=== PATIENT | male | born 1930 | race Hispanic/Latino ===

== ENCOUNTER 2016-09-21 09:53 | Emergency (ER) | payer OTHER, MEDICARE ==
[2016-09-21] MEDS ORDERED: Sodium Chloride 0.9% 1,000 ML PRIMARY IV ONE (10:13)
[2016-09-21] MEDS ORDERED: NORMAL SALINE 10 ML SYRINGE FLUSH IVP PRN (10:13)
[2016-09-21 10:16] VITALS: RESP 20; TEMP 97.3
[2016-09-21 10:35] LABS: BASOPHILS # (AUTO) 0.01 10*3/UL; BASOPHILS % (AUTO) 0.2 % (0-1); EOSINOPHILS # (AUTO) 0.06 10*3/UL; EOSINOPHILS % (AUTO) 1.3 % (0-8); HEMATOCRIT 40.6 % (42.0-52.0); LYMPHOCYTES # (AUTO) 0.91 10*3/uL; MEAN CORPUSCULAR HGB CONC 34.5 g/dL (33-37); MEAN CORPUSCULAR VOLUME 86.9 FL (80-90); MEAN PLATELET VOLUME 8.3 FL (7.4-12.2); MONOCYTES # (AUTO) 0.29 10*3/UL (0.3-0.8); MONOCYTES % (AUTO) 6.4 % (5-15); NEUTROPHILS # (AUTO) 3.23 10*3/UL; NEUTROPHILS % (AUTO) 71.7 % (50-80); RED BLOOD COUNT 4.67 10^6/uL (4.70-6.10)
[2016-09-21 10:41] LABS: PLATELET MORPHOLOGY COMMENT NORMAL MORPHOLOGY (NORM); RBC MORPHOLOGY COMMENT NORMAL MORPHOLOGY (NORM); WBC MORPHOLOGY COMMENT NORMAL MORPHOLOGY (NORM)
[2016-09-21 10:47] LABS: BUN/CREATININE RATIO 25.71 (6-20); MAGNESIUM 1.8 mg/dL (1.6-2.4); SERUM ALBUMIN 3.8 g/dL (3.5-4.8)
--- NOTE | 2016-09-21 11:08 | DI ---
AP PELVIS and LEFT HIP, 09/21/2016 10:16 AM: Clinical History: Left hip pain. Previous Exam: None at this facility. There is no soft tissue abnormality. The bony structures of the pelvis are normal. 2 views of the lef t hip show no fracture. There is asphericity of the femoral head with acetabular over coverage along the superior and lateral margin of the acetabulum. 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 There is no significant joint space narrowing. The patient has had extensive low back surgery. Readin. There is no acute fracture noted. No significant joint space narrowing is present but there is as phericity of the femoral head with acetabular over coverage suggesting this patient may have femoroac etabular impingement. 2. The AP pelvis view is otherwise unremarkable.
--- NOTE | 2016-09-21 11:08 | DI ---
PA /LATERAL CHEST X-RAY, 09/21/2016 10:13 AM : Clinical History: Abnormal physical exam revealing decreased breath sounds in the left chest. Previous Exam: 01/02/2015. There is no acute soft tissue or bony abnormality. Surgical clips are present in the right side of th e neck. Heart size is normal. Lungs are clear. Mediastinal structures are normal. There are no pulmon garth nodules. Reading: Normal chest x-ray. There has been no change.
--- NOTE | 2016-09-21 12:31 | DI ---
CT ABDOMEN SCAN WITH IV CONTRAST, 09/21/2016 11:55 AM : Clinical History: Left flank pain and left abdominal pain. Previous Exam: None at this facility. Scans are performed from the lower lung bases through the liver and kidneys with IV contrast. 65 ml o f Isovue 300 was injected IV. No oral or rectal contrast was ordered. The lung bases are clear. The liver is normal. The gallbladder is grossly normal. There is no abnorma lity of the spleen, pancreas, and adrenal glands. Both kidneys are normal in size, shape, position an d contour. There is no hydronephrosis or hydroureter. No renal or ureteral calculi are present. There are no abnormal retrocrural or periaortic nodes. No ascites is present. READING: Normal CT abdomen scan. CT PELVIS SCAN WITH IV CONTRAST, 09/21/2016 11:55 AM: Clinical History: See above. Previous Exam: None at this facility. Scans are performed from just superior to the umbilicus to the symphysis pubis with IV contrast. This is the same bolus of contrast used for the CT scans of the abdomen. Scans through the lower abdomen and pelvis show no masses or abnormal fluid collections. There is no adenopathy. The appendix is not visualized but there is no inflammatory mass in the cecal tip or in t he right lower quadrant. The small bowel, terminal ileum, and ileocecal valve are normal. The colon i s also normal. There are no hernias. READING: Normal CT scan of the pelvis.
[2016-09-21 12:59] LABS: BILIRUBIN,URINE NEGATIVE (NEG); COLOR,URINE YELLOW; GLUCOSE, URINE (UA) NEGATIVE (NEG); NITRATE,URINE NEGATIVE (NEG); OCCULT BLOOD,URINE NEGATIVE (NEG); PH,URINE 5.5 (5.0-8.5); PROTEIN,URINE NEGATIVE (NEG); UROBILINOGEN,URINE 0.2 EU/dL (0.2)
[2016-09-21 13:00] LABS: CLARITY,URINE CLEAR (CLEAR); URINE SAMPLE TYPE VOID
--- NOTE | 2016-09-21 16:35 | PDOC ---
General Adult HPI - General Chief Complaint: Neck / Back Complaint Stated Complaint: back,groin and leg pain Date Seen by Provider: 09/21/16 Time Seen by Provider: 10:00 Source: POSITIVE: Patient, Other (Son and daughter) Exam Limitations: POSITIVE: No limitations Nurse's Notes Reviewed & Considered: Yes - History of Present Illness Initial Comment: The patient is an 86 year old male. He is brought to the emergency room by his son and daughter. Patient lives in the [facility]. For at least the past 4 days the patient has been having some pain in his left hip groin and flank. Patient fell last night onto his scooter. He uses a cane to assist him in ambulation. Patient had a CVA 3 years ago which reportedly left him with some weakness on the left side. He has a history of type II diabetes mellitus for which he takes 8 units of Lantus insulin at night. He had a myocardial infarction 20 years ago and has had two coronary artery stents placed. Son reports that he is complained of some difficulty with urination. No fevers or chills. No nausea, vomiting, diarrhea, melena, hematochezia, hematemesis, dysuria or hematuria. Have you received a tetanus shot in the past 10 years?: Yes Body Location Affected: REPORTS: Lower Extremity (L) (Left hip), Abdomen (Left flank), Back Timing: REPORTS: Constant Duration: <1 week Severity: Moderate Quality: REPORTS: "Pain" Context: REPORTS: Recent Trauma (Has fallen last night.) Modifying Factors: improves with: Walking Similar Symptoms Previously: Yes Recent Care Received: REPORTS: Denies Any Prior Injuries Related to Current Complaint?: No - Patient Home Medications Home Medications: Home Medications Atenolol 1 tab ORAL QD tab 08/20/11 Hydrochlorothiazide [HydroDiuril Tab] 0.5 tab ORAL QD tab 08/20/11 Nitroglycerin 6.5 mg ORAL BID #60 capsule 02/07/12 Clopidogrel Bisulfate [Plavix] 1 tab PO QD #30 tab 01/11/13 Losartan Potassium 1 tab PO DAILY #30 tab 07/13/13 Esomeprazole Magnesium [Nexium] 1 cap ORAL BID #60 capsule 04/10/14 Insulin Glargine Inj [Lantus Inj] 8 unit SQ QAM #3 vial 05/18/16 Melatonin 1 mg PO tab 05/18/16 Trazodone HCl 1 tab PO QHS tab 05/18/16 Duloxetine HCl [Cymbalta] 1 cap PO DAILY #90 cap 06/15/16 Simvastatin 1 tab PO DAILY #15 tab 09/20/16 - Patient Allergies Allergies/Adverse Reactions: Allergies Allergy/AdvReac Type Severity Reaction Status Date / Time codeine Allergy Intermediate HIVES Verified 09/21/16 10:05 hydrocodone Allergy Mild HIVES Verified 09/21/16 10:05 triamterene [Triamterene] AdvReac Intermediate HYPOKALEMIA Verified 09/21/16 10: 05 Past Medical History - heen HEENT History: Hard of Hearing Cardiovascular History: Hypertension, Angina, Previous [place], CAD, Hyperlipidemia, Other (please comment) Additional Cardiovasular History: Stents placed right ventricle, post arrest 2004 Respiratory History: Home Oxygen Use Additional Respiratory History: NOC AND PRN, cpap Gastrointestinal History: GERD Genitourinary History: Denies History Additional Genitourinary History: PT WENT IN ACUTE RENAL FAILURE FOLLOWING RESP FAILURE DURING BACK SURGERY IN 2004 Endocrine History: Type 2 Diabetes (insulin) Musculoskeletal History: Back Pain Prosthesis or Implant: No Additional Musculoskeletal History: MULTIPLE BACK SURGIES Neurological History: CVA, Other (please comment) Additional Neurological History: 10/2012 Blood Disorders: Denies History Psychiatric History: Depression Additional Psychiatric History: some depression History of Sexually Transmitted Diseases: No Cancer History: Denies History In Past Year Been Physically Harmed or Verbally Threatened: No History of MDRO: No History of Other Communicable Diseases: No Tobacco Use: Former Smoker Alcohol Use: None Substance Use Type: None Previous Surgical History: Yes Type / Date of Surgery: APPENDECTOMY, RIGHT CAROTID ENDARTERECTOMY, NECK AND BACK SURGERIES X5. Lumbar fusion in 2004 was complicated with acute renal failure, respiratory failure-mechanical ventilation, TONSILECTOMY Anesthesia Reactions: No Malignant Hyperthermia: No Significant Family History: Heart disease, Diabetes, Hypertension, Other ( please comment) Additional Family History: CVA Past Medical History Reviewed: Reviewed - No Changes ROS - Limitations ROS Limitations: No Limitations Constitution: REPORTS: Denies Symptoms Cardiovascular: REPORTS: Denies Cardiac Symptoms Respiratory: REPORTS: Denies Resp Symptoms Neurological: REPORTS: Denies Neuro Symptoms Gastrointestinal: REPORTS: Other (Possibly some discomfort left flank) Endocrine: REPORTS: Denies Symptoms Musculoskeletal: REPORTS: Recent Injury (Fell last night), Other (Left hip) Genitourinary: REPORTS: Difficulty Urinating Eyes: REPORTS: Denies Symptoms ENT: REPORTS: Denies Symptoms Skin: REPORTS: Denies Skin Symptoms Lympathic: REPORTS: Denies Lympathic Symptoms Immunologic: POSITIVE: Denies Symptoms Psychiatric: POSITIVE: Denies Psych Symptoms General Adult Exam - General Appearance General Appearance: POSITIVE: Alert, Cooperative, No Acute Distress, No Evidence of Trauma - HEENT HEENT: POSITIVE: Head Inspection Nml, Eyes Inspection Nml, Ears Inspection Nml, Nose Inspection Nml, Oral/Dental Inspect. Nml, Pharynx Inspect. Nml, PERRL, EOMI - Pupils Pupil Size: 3 mm: Bilateral (PERRLA) - Neck Neck: POSITIVE: Normal Inspection, Thyroid Normal - Respiratory Respiratory: POSITIVE: No Respiratory Distress, Chest Non-Tender. NEGATIVE: Breath Sounds Normal (Decreased breath sounds on left) - Cardiovascular Cardiovascular: POSITIVE: Regular Rate & Rhythm, No Murmur, No Gallop, PMI Normal Peripheral Pulses: Radial (R): 2+, Radial (L): 2+ - Abdomen Abdomen: Soft: (All Quadrants), Normal Bowel Sounds: (All Quadrants), Denies Tenderness: (All Quadrants), No Splenomegaly: (All Quadrants), No Hepatomegaly: (All Quadrants), No Guarding: (All Quadrants), No Rebound: (All Quadrants), No Palpable Pulse: (All Quadrants), No Palpabale Mass: (All Quadrants), No Distention: (All Quadrants), No Rigidity: (All Quadrants) - Back Back: POSITIVE: Normal Inspection - Skin Skin: POSITIVE: Normal Color, Warm, Dry, No Rash - Extremities Extremity: Non-Tender: (RLE), (LUE), (RUE), Normal ROM: (RUE), (LUE), (RLE), ( LLE), Normal Inspection: (All Extremities), Pelvis Stable: (All Extremities), Normal Tendon Exam: (All Extremities), Tender: (LLE) (some tenderness on direct firm palpation anterior aspect left hip) Additional Extremities Details: Examination of extremities shows there to be some tenderness on firm direct palpation over the anterior aspect of the left hip. Patient can straight leg raise both heels off the bed without pain. Range of motion is intact. No gross sensory motor or vascular deficits. - Neurological / Psychological Neurological: POSITIVE: Oriented X3, executive meeting manager Normal As Tested, Motor Normal, Sensation Normal, 5, 6 Reflexes: Patellar (L): 2+, Radial (R): 2+ Images - Complete Complete: 1 - Discomfort on direct palpation 2 - Area of some described discomfort but not on palpation. General Adult Progress - Results Reviewed by me Xrays/CTs/US Reviewed by me: Yes Discussed with Radiologist: Yes Radiology Findings: Chest x-ray normal. X-ray left hip shows no acute fracture ; there is an aspericity of the femoral head noted compatible with femoral acetabular impingement. AP pelvis is normal. CT scan of the abdomen and pelvis is normal and CT scan of the pelvis shows no occult hip fracture. Lab Results Reviewed: Yes (bladder scan showed residual urine of 20 mL) Lab Results:: Laboratory Results 09/21/16 09/21/16 Range/Units 10:27 12:56 WBC 4.51 L (4.8-10.8) 10^3/uL RBC 4.67 L (4.70-6.10) 10^6/uL Hgb 14.0 (14.0-18.0) g/dL Hct 40.6 L (42.0-52.0) % MCV 86.9 (80-90) FL MCH 30.0 (27-31) PG MCHC 34.5 (33-37) g/dL RDW Std Deviation 48.0 (39-50) fL RDW Coeff of Joycelyn 15.3 H (11.5-14.5) % Plt Count 159 (140-350) 10*3/uL MPV 8.3 (7.4-12.2) FL Immature Gran % (Auto) 0.2 (0-5) % Neut % (Auto) 71.7 (50-80) % Lymph % (Auto) 20.2 (10-50) % Haakon % (Auto) 6.4 (5-15) % Eos % (Auto) 1.3 (0-8) % Baso % (Auto) 0.2 (0-1) % Immature Gran # (Auto) 0.01 10*3/UL Neut # (Auto) 3.23 10*3/UL Lymph # (Auto) 0.91 10*3/uL Haakon # (Auto) 0.29 L (0.3-0.8) 10*3/UL Eos # (Auto) 0.06 10*3/UL Baso # (Auto) 0.01 10*3/UL WBC Morphology Comment Normal morphology (NORM) Plt Morphology Comment Normal morphology (NORM) RBC Morph Comment Normal morphology (NORM) Sodium 138 (135-145) meq/L Potassium 4.0 (3.8-5.2) meq/L Chloride 100 (98-112) meq/L Carbon Dioxide 29 (23-33) meq/L Anion Gap 9 (5-20) BUN 36 H (7-22) mg/dL Creatinine 1.4 (0.70-1.50) mg/dL Estimated GFR (>60 ml/min/1.73m(2)) BUN/Creatinine Ratio 25.71 H (6-20) Glucose 203 H (78-110) mg/dL Calculated Osmolality 299.0 H (267-292) mOsm/kg Calcium 9.0 (8.7-10.7) mg/dL Magnesium 1.8 (1.6-2.4) mg/dL Total Bilirubin 0.7 (0.3-1.2) mg/dL AST 26 (21-57) IU/L ALT 22 (21-72) IU/L Alkaline Phosphatase 50 (38-126) IU/L Total Protein 6.7 (6.1-8.0) g/dL Albumin 3.8 (3.5-4.8) g/dL Globulin 3.0 (2.50-4.10) g/dL Albumin/Globulin Ratio 1.20 L (1.3-2.0) mg/g Ur Collection Type Void Urine Color Yellow Urine Clarity Clear (CLEAR) Urine pH 5.5 (5.0-8.5) Ur Specific [place] 1.010 (1.005-1.030) Urine Protein Negative (NEG) mg/dl Urine Glucose (UA) Negative (NEG) mg/dL Urine Ketones Negative (NEG) Urine Occult Blood Negative (NEG) Urine Nitrate Negative (NEG) Urine Bilirubin Negative (NEG) Urine Urobilinogen 0.2 (0.2) EU/dL Ur Leukocyte Esterase Negative (NEG) Ur Culture Indicated? Culture not set - Patient's Progress Pain Medication Addressed: POSITIVE: Not Applicable School/Work Release Addressed: POSITIVE: Not Applicable Re-Examine Time: 13:30 Re-Examine Comment: Radiologic study results and laboratory results discussed with family and patient. Status: POSITIVE: Unchanged, Re-Examined Antibiotics Given: No - Consult Counseled: POSITIVE: Patient, Family, RE: Lab Results, RE: Radiology Results, RE : DX, RE: Need for F/U Patient Care Time - Estimated PCT Patient Care Time (In Minutes): 60 Vital Signs - Recent Vital Signs Vital Signs: Vital Signs (Last 8 hours) Temp Pulse Resp BP Pulse Ox 09/21/16 09:53 97.3 F 54 L 20 147/55 96 - VS Reviewed Vital Signs Reviewed: Yes Discharge Clinical Impression: Sciatica, Degenerative arthritis of hip Discharge Disposition: Discharged to Home Condition: Stable Patient Instructions Given at Discharge: Osteoarthritis (ED), Sciatica (ED) Additional Instructions: CT scan of her abdomen and pelvis were normal. X-ray of your left hip showed no fractures or dislocations. CT scan of your left hip. Blood and urine tests were essentially normal. X-ray of your left hip did show severe degenerative changes. I believe you're pain in the left hip and flank and groin he is due to the degenerative arthritis in your left hip. You may also have an element of sciatica, which is inflammation of a nerve in the back of your left hip, often associated with degenerative arthritis. Take Tylenol for discomfort. I would avoid Aleve and Advil and similar medications in view of your age and the potential effect of these medications on your kidneys. Use your walker and make sure you move slowly about she residence. I do not believe your cane provides adequate stability. Follow-up with your primary care provider. Return here anytime if condition worsens in any way. Follow Up With: ROSARIO CROWLEY [Primary Care Provider] - (Instructions as above. Follow-up with your primary care provider. Return here as necessary.)
== END 2016-09-21 14:02 | disposition home or self-care (01) ==
LOC: ER 09:53
DX: M54.42 Lumbago with sciatica, left side (principal); R10.12 Left upper quadrant pain; R30.0 Dysuria; E11.9 Type 2 diabetes mellitus without complications; Z79.4 Long term (current) use of insulin; W01.198A Fall on same level from slipping, tripping and stumbling with subsequent striking against other object, initial encounter
CPT/HCPCS: 71020; 73502; 74177; 80053; 81003; 83735; 85025; 99283; J7030